=== PATIENT | male | born 1960 ===

== ENCOUNTER 2018-08-28 10:15 | Emergency (ER) | payer BC ==
[2018-08-28 10:25] VITALS: TEMP 97.8
[2018-08-28] MEDS ORDERED: Sodium Chloride 0.9% 500 ML IV STA (10:48)
[2018-08-28] MEDS ORDERED: Morphine 4 mg/ml ISec IVP STA (10:48)
[2018-08-28 10:56] LABS: BASO # 0.03 K/mm3 (0.0-2.0); BASO % 0.3 % (0.0-3.0); EOS # 0.1 (0.0-0.7); EOS % 0.9 % (1.5-5.0); GRAN # 7.13 (1.4-6.5); GRAN % 75.9 % (50.0-68.0); HEMOGLOBIN 15.7 g/dL (14.0-18.0); LYMPH # 1.4 (1.2-3.4); LYMPH % 15.1 % (22.0-35.0); MEAN CELL VOLUME 93.1 fl (80.0-105.0); MEAN CORPUSCULAR HEMOGLOBIN 33.8 pg (25.0-35.0); MEAN CORPUSCULAR HGB CONC 36.3 g/dl (31.0-37.0); MEAN PLATELET VOLUME 9.5 fl (7.0-11.0); MONO # 0.7 (0.1-0.6); MONO % 7.8 % (1.0-6.0); RBC 4.64 10^6/uL (3.5-6.1); RED CELL DISTRIBUTION WIDTH 12.1 % (11.5-14.5); WHITE BLOOD COUNT 9.4 10^3/ul (4.5-11.0)
[2018-08-28 11:05] LABS: ALB/GLOB RATIO 1.4 (1.1-1.8); ALBUMIN 4.2 g/dL (3.0-4.8); ALT/SGPT 64 U/L (7-56); AST/SGOT 33 U/L (17-59); BLOOD UREA NITROGEN 26 mg/dL (7-21); CALCIUM 9.9 mg/dL (8.4-10.5); GFR NON-AFRICAN AMERICAN 52; LIPASE 111 U/L (23-300)
[2018-08-28] MEDS ORDERED: Iohexol 350 MG/100 ML VIAL ONE (11:14)
[2018-08-28 11:16] LABS: TROPONIN I 0.03 ng/mL
[2018-08-28 11:46] VITALS: RESP 18
--- NOTE | 2018-08-28 11:48 | ED PDOC ---
Arrival/HPI - General Chief Complaint: Abdominal Pain Time Seen by Provider: 08/28/18 10:39 Historian: Patient - History of Present Illness Narrative History of Present Illness (Text): 08/28/18 11:43 58-year-old male presents today with a sudden onset of diffuse abdominal pain that started this morning. Patient denies nausea vomiting diarrhea or constipation. Patient states he has a bloating sensation in the abdomen with a cramping sensation. Patient thought that the abdominal pain was related to eating beans, rice and pork yesterday. Patient denies chest pain or shortness of breath. He denies back pain. He denies urinary symptoms. Patient denies testicular pain. Patient denies headaches dizziness or weakness. No medications have been taken for pain at home. Patient was sent to the emergency room from urgent care center for further evaluation of his abdominal pain. Severity Level: Moderate Past Medical History - Provider Review Nursing Documentation Reviewed: Yes - Travel History Have you recently traveled outside [place] w/in the past 3 mons?: No - Tetanus Immunization Tetanus Immunization: Unknown - Cardiac Hx Cardiac Disorders: Yes - Pulmonary Hx Respiratory Disorders: No - Neurological Hx Neurological Disorder: No - HEENT Hx HEENT Disorder: No - Renal Hx Renal Disorder: No - Endocrine/Metabolic Hx Endocrine Disorders: No - Hematological/Oncological Hx Blood Disorders: No - Integumentary Hx Dermatological Disorder: No - Musculoskeletal/Rheumatological Hx Musculoskeletal Disorders: No - Gastrointestinal Hx Gastrointestinal Disorders: No - Genitourinary/Gynecological Hx Genitourinary Disorders: No - Psychiatric Hx Psychophysiologic Disorder: No Hx Substance Use: No - Surgical History Hx Coronary Stent: Yes Hx Orthopedic Surgery: Yes (L SHOULDER) Family/Social History - Physician Review Nursing Documentation Reviewed: Yes Family/Social History: Unknown Family HX Smoking Status: Never Smoked Hx Alcohol Use: Yes Frequency of alcohol use: Socially Hx Substance Use: No Allergies/Home Meds Allergies/Adverse Reactions: Allergies Sulfa (Sulfonamide Antibiotics) Allergy (Verified 08/28/18 10:19) SWELLING Home Medications: Home Meds Medication Instructions Recorded Confirmed Unobtainable 08/28/18 08/28/18 Review of Systems - Review of Systems Constitutional: absent: Fatigue, Fevers Respiratory: absent: SOB, Cough Cardiovascular: absent: Chest Pain, Palpitations Gastrointestinal: Abdominal Pain. absent: Constipation, Diarrhea, Nausea, Vomiting Genitourinary Male: absent: Dysuria, Frequency, Hematuria Musculoskeletal: absent: Arthralgias, Back Pain, Neck Pain Skin: absent: Rash, Pruritis Neurological: absent: Headache, Dizziness Psychiatric: absent: Anxiety, Depression Physical Exam Vital Signs Reviewed: Yes Vital Signs Temp Pulse Resp BP Pulse Ox 08/28/18 10:19 97.8 F 63 20 164/98 H 98 Temperature: Afebrile Blood Pressure: Hypertensive Pulse: Regular Respiratory Rate: Normal Appearance: Positive for: Well-Appearing, Non-Toxic, Comfortable Pain Distress: None Mental Status: Positive for: Alert and Oriented X 3 - Systems Exam Head: Present: Atraumatic Mouth: Present: Moist Mucous Membranes Neck: Present: Normal Range of Motion Respiratory/Chest: Present: Clear to Auscultation, Good Air Exchange. No: Respiratory Distress, Accessory Muscle Use Cardiovascular: Present: Regular Rate and Rhythm, Normal S1, S2. No: Murmurs Abdomen: Present: Tenderness (+ ttp ruq/epigastric region. ), Normal Bowel S ounds. No: Peritoneal Signs, Rebound, Guarding Back: Present: Normal Inspection. No: Midline Tenderness, Paraspinal Tenderness Upper Extremity: Present: Normal ROM Lower Extremity: Present: Normal ROM Neurological: Present: GCS=15, Speech Normal Skin: Present: Warm, Dry, Normal Color. No: Rashes Psychiatric: Present: Alert, Oriented x 3 Medical Decision Making ED Course and Treatment: 08/28/18 11:46 Patient is nontoxic well appearing with stable vital signs presenting with diffuse abdominal pain with tenderness greatest in the epigastric region EKG shows sinus bradycardia with marked sinus arrhythmia at [address] elevations QTC 390 pt with severe abdominal pain requiring morphine for pain control . CBC wnl CMP wnl Lipase wnl Urinalysis: Patient reassessment: after morphine; pt is feeling slightly better; states pain has improved. CAT scan:FINDINGS: LOWER THORAX: Unremarkable. LIVER: Unremarkable. No gross lesion or ductal dilatation. GALLBLADDER AND BILE DUCTS: Multiple lucent stones are seen in the gallbladder PANCREAS: Unremarkable. No gross lesion or ductal dilatation. SPLEEN: Unremarkable. ADRENALS: Unremarkable. No mass. KIDNEYS AND URETERS: Unremarkable. No hydronephrosis. No solid mass. Single small punctate nonobstructing stones are seen in both kidneys VASCULATURE: Unremarkable. No aortic aneurysm. BOWEL: Unremarkable. No obstruction. No gross mural thickening. APPENDIX: Normal appendix. PERITONEUM: Unremarkable. No free fluid. No free air. LYMPH NODES: Unremarkable. No enlarged lymph nodes. BLADDER: Unremarkable. REPRODUCTIVE: Unremarkable. BONES: No acute fracture. OTHER FINDINGS: None. IMPRESSION: Gallstones. No acute findings case was discussed with dr. Morales; will get surgical consult. she is requesting dr. cho. case discussed with physician vice president art who states dr. cho is aware of the case and will see patient at beside. will admit patient observational status to med/surg consider US BILLIE. Impression: Abdominal pain, gallstones admit observational status med/surg with surgical consult. - Lab Interpretations Lab Results: 08/28/18 10:45 08/28/18 10:45 Lab Results 08/28/18 10:45: WBC 9.4, RBC 4.64, Hgb 15.7, Hct 43.2, MCV 93.1, MCH 33.8, MCHC 36.3, RDW 12.1, Plt Count 188, MPV 9.5, Gran % 75.9 H, Lymph % (Auto) 15.1 L, Crawford % (Auto) 7.8 H, Eos % (Auto) 0.9 L, Baso % (Auto) 0.3, Gran # 7.13 H, Lymph # (Auto) 1.4, Crawford # (Auto) 0.7 H, Eos # (Auto) 0.1, Baso # (Auto) 0.03 08/28/18 10:45: Sodium 138, Potassium 5.0, Chloride 105, Carbon Dioxide 26, Anion Gap 12, BUN 26 H, Creatinine 1.4, Est GFR ( Amer) > 60, Est GFR (Non-Af Amer) 52, Random Glucose 128 H, Calcium 9.9, Total Bilirubin 0.7, AST 33, ALT 64 H, Alkaline Phosphatase 81, Lactate Dehydrogenase 424, Total Creatine Kinase 116, Troponin I 0.03, Total Protein 7.2, Albumin 4.2, Globulin 3.0, Albumin/Globulin Ratio 1.4, Lipase 111 - RAD Interpretation Radiology Orders: 08/28/18 10:39 CHEST PORTABLE [RAD] Stat 08/28/18 10:48 ABD & PELVIS IV CONTRAST ONLY [CT] Stat - Medication Orders Current Medication Orders: Discontinued Medications Sodium Chloride (Sodium Chloride 0.9%) 500 mls @ 999 mls/hr IV .Q31M STA Stop: 08/28/18 11:18 Last Admin: 08/28/18 10:54 Dose: 999 mls/hr eMAR Start Stop Document 08/28/18 10:54 GMD (Rec: 08/28/18 10:54 GMD [id number]) Intravenous Solution Start Date 08/28/18 Start Time 10:54 End Date 08/28/18 End time 11:24 Total Infusion Time 30 Morphine Sulfate (Morphine) 4 mg IVP STAT STA Stop: 08/28/18 10:49 Last Admin: 08/28/18 10:54 Dose: 4 mg MAR Pain Assessment Document 08/28/18 10:54 GMD (Rec: 08/28/18 10:54 GMD [id number]) Pain Reassessment Is this a pain reassessment? No Presence of Pain Presence of Pain Yes Pain Scale Used Protocol: PSCALES Pain Scale Used Numeric Location Pain Location Body Site Abdomen Description Pain Behavior Moaning Irritability Grasping Site Restlessness Facial Grimacing IVP Administration Document 08/28/18 10:54 GMD (Rec: 08/28/18 10:54 GMD [id number]) Charges for Administration # of IVP Administrations 1 Disposition/Present on Arrival - Present on Arrival Any Indicators Present on Arrival: No History of DVT/PE: No History of Uncontrolled Diabetes: No Urinary Catheter: No History of Decub. Ulcer: No History Surgical Site Infection Following: None - Disposition Have Diagnosis and Disposition been Completed?: Yes Diagnosis: Abdominal pain, Gallstones Disposition: HOSPITALIZED Disposition Time: 12:30 Patient Plan: Observation Condition: FAIR Referrals: Amado Gerard MD [Primary Care Provider] - Follow up with primary Forms: [employer] (Macedonian)
--- NOTE | 2018-08-28 12:07 | CT ---
Date of service: 08/28/2018 PROCEDURE: CT Abdomen and Pelvis with contrast HISTORY: abd pain COMPARISON: None. TECHNIQUE: Contrast dose: 100 cc of Omni 350 Radiation dose: Total exam DLP = 1024 mGy-cm. This CT exam was performed using one or more of the following dose reduction techniques: Automated exposure control, adjustment of the mA and/or kV according to patient size, and/or use of iterative reconstruction technique. FINDINGS: LOWER THORAX: Unremarkable. LIVER: Unremarkable. No gross lesion or ductal dilatation. GALLBLADDER AND BILE DUCTS: Multiple lucent stones are seen in the gallbladder PANCREAS: Unremarkable. No gross lesion or ductal dilatation. SPLEEN: Unremarkable. ADRENALS: Unremarkable. No mass. KIDNEYS AND URETERS: Unremarkable. No hydronephrosis. No solid mass. Single small punctate nonobstructing stones are seen in both kidneys VASCULATURE: Unremarkable. No aortic aneurysm. BOWEL: Unremarkable. No obstruction. No gross mural thickening. APPENDIX: Normal appendix. PERITONEUM: Unremarkable. No free fluid. No free air. LYMPH NODES: Unremarkable. No enlarged lymph nodes. BLADDER: Unremarkable. REPRODUCTIVE: Unremarkable. BONES: No acute fracture. OTHER FINDINGS: None. IMPRESSION: Gallstones. No acute findings
[2018-08-28 12:22] LABS: URINE BILIRUBIN NEGATIVE (NEGATIVE); URINE BLOOD NEGATIVE (NEGATIVE); URINE GLUCOSE (UA) NEGATIVE (NEGATIVE); URINE LEUKOCYTE ESTERASE NEGATIVE Leu/uL (NEGATIVE); URINE PROTEIN NEGATIVE mg/dL (<30 mg/dL); URINE UROBILINOGEN 0.2 E.U./dL (<1 E.U./dL)
[2018-08-28 12:25] LABS: URINE APPEARANCE CLEAR (CLEAR); URINE COLOR YELLOW (YELLOW)
--- NOTE | 2018-08-28 12:42 | RAD ---
Date of service: 08/28/2018 HISTORY: abd pain COMPARISON: No prior. FINDINGS: LUNGS: No active pulmonary disease. PLEURA: No significant pleural effusion identified, no pneumothorax apparent. CARDIOVASCULAR: Normal. OSSEOUS STRUCTURES: No significant abnormalities. VISUALIZED UPPER ABDOMEN: Normal. OTHER FINDINGS: None. IMPRESSION: No active disease.
[2018-08-28] MEDS ORDERED: Dextrose 5%/0.45% NS 1,000 ML IV SCH (12:45)
--- NOTE | 2018-08-28 13:06 | CP.PCM.CON ---
<Louis Biswas - Last Filed: 08/28/18 13:07> History of Present Illness - History of Present Illness History of Present Illness: General Surgery consult note for Dr. Krishnamurthy CC: Gallstones Mr. Pan is a 58 y/o male with PMH of CVD presenting with pain and bloating in midline abdomen starting from earlier this morning after eating a large meal yesterday night. At the time of my examination patient is stating that he has complete resolution of pain. He reports the pain was diffuse, non-localized and not sharp. He describes the pain as a sensation of being bloated. Patient denies any history of post-prandial pain or right sided abdominal pain. Denies fever, chills, fatigue, nausea, vomiting, diarrhea or any other systemic symptoms. PSHx: Inguinal hernia and ventral hernia w/ mesh. Rotator cuff surgery. LAD stent. PMHx: CVD Allergies: Sulfa Social: 1 cigar/week. 2-3 beers/week. Denies illicit drug use. Review of Systems - Review of Systems All systems: reviewed and no additional remarkable complaints except - Constitutional Constitutional: absent: Anorexia, Chills - EENT Eyes: absent: Blurred Vision, Change in Vision - Respiratory Respiratory: absent: Dyspnea - Gastrointestinal Gastrointestinal: Bloating, Constipation. absent: Nausea, Vomiting Past Patient History - Tetanus Immunizations Tetanus Immunization: Unknown - Past Social History Smoking Status: Never Smoked - CARDIAC Hx Cardiac Disorders: Yes - PULMONARY Hx Respiratory Disorders: No - NEUROLOGICAL Hx Neurological Disorder: No - HEENT Hx HEENT Problems: No - RENAL Hx Chronic Kidney Disease: No - ENDOCRINE/METABOLIC Hx Endocrine Disorders: No - HEMATOLOGICAL/ONCOLOGICAL Hx Blood Disorders: No - INTEGUMENTARY Hx Dermatological Problems: No - MUSCULOSKELETAL/RHEUMATOLOGICAL Hx Musculoskeletal Disorders: No - GASTROINTESTINAL Hx Gastrointestinal Disorders: No - GENITOURINARY/GYNECOLOGICAL Hx Genitourinary Disorders: No - PSYCHIATRIC Hx Psychophysiologic Disorder: No Hx Substance Use: No - SURGICAL HISTORY Hx Coronary Stent: Yes Hx Orthopedic Surgery: Yes (L SHOULDER) Meds Allergies/Adverse Reactions: Allergies Allergy/AdvReac Type Severity Reaction Status Date / Time Sulfa (Sulfonamide Allergy SWELLING Verified 08/28/18 15:47 Antibiotics) - Medications Medications: Current Medications Acetaminophen (Tylenol 325mg Tab) 650 mg PO Q6H PRN PRN Reason: Fever >100.4 F Atorvastatin Calcium (Lipitor) 10 mg PO DAILY [facility] Dextrose/Sodium Chloride (Dextrose 5%/0.45% Ns 1000 Ml) 1,000 mls @ 100 mls/hr IV .Q10H [facility] Metoprolol Succinate (Toprol Xl) 25 mg PO BRK [facility] Pantoprazole Sodium (Protonix Inj) 40 mg IVP DAILY [facility] Physical Exam - Constitutional Appears: Non-toxic, No Acute Distress - Head Exam Head Exam: ATRAUMATIC - Eye Exam Eye Exam: EOMI, Normal appearance - ENT Exam ENT Exam: Mucous Membranes Moist - Respiratory Exam Respiratory Exam: NORMAL BREATHING PATTERN - Cardiovascular Exam Cardiovascular Exam: +S1, +S2 - GI/Abdominal Exam GI & Abdominal Exam: Soft. absent: Distended, Guarding, Hernia, Rigid, Tenderness Additional comments: Surgical scar - Neurological Exam Neurological exam: Alert, Oriented x3 - Psychiatric Exam Psychiatric exam: Normal Affect, Normal Mood - Skin Skin Exam: Dry, Intact Results - Vital Signs Recent Vital Signs: Last Vital Signs Temp 97.8 F 08/28/18 10:19 Pulse 61 08/28/18 11:45 Resp 18 08/28/18 11:45 BP 151/91 H 08/28/18 11:45 Pulse Ox 98 08/28/18 11:45 - Labs Result Diagrams: 08/28/18 10:45 08/28/18 10:45 Labs: Laboratory Results - last 24 hr 08/28/18 08/28/18 08/28/18 10:45 10:45 12:19 WBC 9.4 RBC 4.64 Hgb 15.7 Hct 43.2 MCV 93.1 MCH 33.8 MCHC 36.3 RDW 12.1 Plt Count 188 MPV 9.5 Gran % 75.9 H Lymph % (Auto) 15.1 L Dickey % (Auto) 7.8 H Eos % (Auto) 0.9 L Baso % (Auto) 0.3 Gran # 7.13 H Lymph # (Auto) 1.4 Dickey # (Auto) 0.7 H Eos # (Auto) 0.1 Baso # (Auto) 0.03 Sodium 138 Potassium 5.0 Chloride 105 Carbon Dioxide 26 Anion Gap 12 BUN 26 H Creatinine 1.4 Est GFR ( Amer) > 60 Est GFR (Non-Af Amer) 52 Random Glucose 128 H Calcium 9.9 Total Bilirubin 0.7 AST 33 ALT 64 H Alkaline Phosphatase 81 Lactate Dehydrogenase 424 Total Creatine Kinase 116 Troponin I 0.03 Total Protein 7.2 Albumin 4.2 Globulin 3.0 Albumin/Globulin Ratio 1.4 Lipase 111 Urine Color Yellow Urine Appearance Clear Urine pH 8.0 Ur Specific Sullivan 1.010 Urine Protein Negative Urine Glucose (UA) Negative Urine Ketones Negative Urine Blood Negative Urine Nitrate Negative Urine Bilirubin Negative Urine Urobilinogen 0.2 Ur Leukocyte Esterase Negative - Imaging and Cardiology CT scan - abdomen Status: Image reviewed by me CT scan - pelvis Status: Image reviewed by me Assessment & Plan - Assessment and Plan (Free Text) Assessment: 58 y.o male with resolved abdominal pain. -Clear for discharge. -Follow up with Dr. Krishnamurthy prn, if symptoms reoccur. -Case discussed with Dr. Krishnamurthy. Louis Alexandroluis PGY3 <Oz Krishnamurthy - Last Filed: 08/30/18 20:14> Results - Vital Signs Recent Vital Signs: Last Vital Signs Temp 97.8 F 08/28/18 10:19 Pulse 66 08/28/18 14:05 Resp 18 08/28/18 14:05 BP 140/92 H 08/28/18 14:05 Pulse Ox 98 08/28/18 14:05 - Labs Result Diagrams: 08/28/18 10:45 08/28/18 10:45 Assessment & Plan - Assessment and Plan (Free Text) Plan: Dx Constipation Pain NOT cholecystitis Mauro Miralax-AMA Discharge-f/u office/?lap cholecystectomy This consult done under my direct supervision Danita Tracey MD FACS - Date & Time Date: 08/28/18 Time: 13:10
[2018-08-28 14:06] VITALS: BP 140/92; PULSE 66; O2SAT 98
--- NOTE | 2018-08-28 15:55 | CARD ---
APPROVED REPORT Date of service: 08/28/2018 EKG Measurement Heart [id number] [id number] <Conclusion> Sinus bradycardia with marked sinus arrhythmia Nonspecific intraventricular conduction delay ST & T wave abnormality, consider lateral ischemia Abnormal ECG
[2018-08-29] MEDS ORDERED: Metoprolol Succinate 25 mg XL Tab PO SCH (08:00)
== END 2018-08-28 14:08 | disposition short-term general hospital (02) ==
LOC: ED 10:15 → ERH 12:40 → UNDOADMOB 12:40 → ERH 13:41
DX: K80.20 Calculus of gallbladder without cholecystitis without obstruction (principal); R10.9 Unspecified abdominal pain
CPT/HCPCS: 71045; 74177; 80053; 81003; 82550; 83615; 83690; 84484; 85025; 93005; 96374; 99285; J2270; J7040; Q9967